=== PATIENT | female | born 1955 | race Caucasian/White ===

== ENCOUNTER 2025-07-30 11:41 | Emergency (ER) | payer MEDICARE, OTHER, SELFPAY ==
[2025-07-30] VITALS (9 sets, daily range): BP systolic 128–150; BP diastolic 73–80; PULSE 63–73; TEMP 36.7; O2SAT 93–97; BMI 36.8
--- NOTE | 2025-07-30 12:22 | CT_ITS ---
The [address] [address] Patient Name: JOIE ANGULO MRN: [id number] date: 1955 Sex: F Assigned Patient Location: ER Current Patient Location: Accession/Order Number: [id number] Exam Date: 07/30/2025 12:55 Report Date: 07/30/2025 13:27 At the request of: EVGENY OBRIEN MD Procedure: CT head/brain wo con CT head/brain wo con 07/30/2025 1:09 PM SIGNS AND SYMPTOMS: Dizziness, nausea TECHNIQUE:Multi-detector CT axial slices of the brain were obtained without IV contrast. CT was performed with one or more of the following dose reduction techniques: Automated exposure control, adjustment of the mA and/or kV according to patient size, or use of iterative reconstruction technique. COMPARISON: None. FINDINGS: There is no shift of the midline structures, acute intracranial bleeding, mass effects, or evidence of acute ischemia. The ventricular system is normal in size. The brainstem and the cerebellum are unremarkable. The visualized intraorbital contents, the visualized paranasal sinuses, and the infratemporal soft tissues show no acute abnormality. The osseous structures in the skull base and the calvarium show no abnormality. CT/CT head/brain wo con IMPRESSION: Normal noncontrasted CT brain. Impression dictated by: Lazaro Rain M.D. 07/30/2025 1:27 PM Dictation Location: [place] [address] Electronically authenticated by: [id number] Y Date: 07/30/2025 13:27
--- NOTE | 2025-07-30 12:22 | ECG_ITS ---
The [facility] Test Date: 2025-07-30 Pat Name: JOIE ANGULO Department: Room: - Gender: Female Gynecologist: : 1955 Requested By: [id number] Order Number: [id number] Reading MD: VU SHARMA M.D. Measurements Intervals Mason Rate: 60 P: 47 ME: 146 QRS: -18 QRSD: 74 T: 33 QT: 400 QTc: 402 Interpretive Statements 1100 Sinus rhythm 2420 RSR (QR) in lead V1/V2, consistent with right ventricular conduction delay 3113 Cannot rule out anterior myocardial infarction, probably old 7300 Indeterminate axis 8102 Low QRS voltage in chest leads 9150 abnormal ECG No previous ECG available for comparison Electronically Signed On 07-31-2025 10:27:40 EDT by VU SHRAMA M.D.
--- NOTE | 2025-07-30 12:23 | ED.GENADUL1 ---
HPI HPI - General Adult General Chief complaint: Dizziness Stated complaint: NAUSEA, DIZZINESS Time Seen by Provider: 07/30/25 12:18 Source: patient Mode of arrival: walk-in History of Present Illness HPI narrative: 69-year-old female presented for a spinning sensation. It started abruptly today and it is worse if she stands up and moves around. She has never had this before. No localized weakness or trauma or fever. No numbness on her body. No new medications or unusual activities. Related Data Previous Rx's ?Medication ?Instructions ?Recorded meclizine 25 mg tablet 25 mg PO TID PRN dizziness #20 tabs 07/30/25 ondansetron 4 mg disintegrating 4 mg PO Q6H PRN nausea and 07/30/25 tablet vomiting #20 tabs Allergies Allergy/AdvReac Type Severity Reaction Status Date / Time No Known Drug Allergies Allergy Verified 07/30/25 11:53 Review of Systems ROS Narrative A ten point review of systems is negative except as noted above. Exam Narrative Exam Narrative: Nurses note and vital signs reviewed and patient is not hypoxic. General:The patient appears well and in no apparent distress. Patient is resting comfortably on cart. Skin:Warm, dry, no pallor noted.There is no rash noted. Head:Normocephalic, atraumatic Eye: Normal conjunctiva, no drainage, EOMI. PERRL Ears, Nose, Mouth, and Throat: oral mucosa is moist. Nares patent. TMs are nonerythematous. Cardiovascular:Regular Rate and Rhythm Respiratory:Patient is in no distress, no accessory muscle use, lungs are clear to auscultation, no wheezing, rales or rhonchi Back:non-tender GI: Soft and nontender Musculoskeletal: The patient has no evidence of calf tenderness, no pitting edema, symmetrical pulses noted bilaterally Neurological:A&O, normal speech: Upper and lower extremity strength 5 out of 5 and symmetric. Psychiatric:Cooperative Constitutional Vital Signs, click to edit/add: Last Vital Signs Temp 98.0 F 07/30/25 11:47 Pulse 63 07/30/25 12:30 Resp 19 07/30/25 12:30 BP 128/73 07/30/25 12:00 Pulse Ox 95 07/30/25 12:30 O2 Del Method Room Air 07/30/25 12:13 Course Vital Signs Vital signs: Vital Signs Temperature 98.0 F 07/30/25 11:47 Pulse Rate 73 07/30/25 11:47 Respiratory Rate 18 07/30/25 11:47 Blood Pressure 150/76 H 07/30/25 11:47 Pulse Oximetry 95 07/30/25 11:47 Oxygen Delivery Method Room Air 07/30/25 11:47 Temperature 98.0 F 07/30/25 11:47 Pulse Rate 63 07/30/25 12:30 Respiratory Rate 19 07/30/25 12:30 Blood Pressure 128/73 07/30/25 12:00 Pulse Oximetry 95 07/30/25 12:30 Oxygen Delivery Method Room Air 07/30/25 12:13 Medical Decision Making MDM Narrative Medical decision making narrative: Her workup including CT brain is negative. She is ambulatory and is able to be discharged home with a prescription for Antivert and Zofran. Follow-up with PCP and return to emergency department if symptoms worsen. Treatment diagnosis and follow-up were discussed with the patient and her . Differential Diagnosis Differential Diagnosis: Vertigo, labyrinthitis, dehydration, acute kidney injury Lab Data Lab results reviewed: Yes I reviewed the patient's lab results Labs: Lab Results 07/30/25 Range/Units 12:07 WBC 7.4 (4.0-11.0) 10^3/uL RBC 3.94 L (4.20-5.40) 10^6/uL Hgb 12.7 (12.0-16.0) g/dL Hct 37.0 (36.0-48.0) % MCV 93.9 (81.0-99.0) fL MCH 32.2 (26.7-34.0) pg MCHC 34.3 (29.9-35.2) g/dL RDW 12.4 (11.0-15.0) % Plt Count 230 (150-450) 10^3/uL MPV 10.7 (9.5-13.5) fL Neut % (Auto) 69.8 (43.0-75.0) % Lymph % (Auto) 21.2 (20.5-60.0) % [place] % (Auto) 6.6 (1.7-12.0) % Eos % (Auto) 1.6 (0.9-7.0) % Baso % (Auto) 0.4 (0.2-2.0) % Neut # (Auto) 5.2 (1.4-6.5) 10^3/uL Lymph # (Auto) 1.6 (1.2-3.8) 10^3/uL [place] # (Auto) 0.5 (0.3-0.8) 10^3/uL Eos # (Auto) 0.1 (0.0-0.7) 10^3/uL Baso # (Auto) 0.0 (0.0-0.1) 10^3/uL Abs Immat Gran (auto) 0.03 (0.00-0.03) 10^3/uL Imm/Tot Granulo (auto) 0.4 (0.0-0.5) % Sodium 138 (136-145) mmol/L Potassium 3.9 (3.5-5.1) mmol/L Chloride 105 (98-107) mmol/L Carbon Dioxide 25.5 (21.0-32.0) mmol/L Anion Gap 11.4 BUN 25.0 H (7.0-18.0) mg/dL Creatinine 1.15 H (0.55-1.02) mg/dL Est GFR ( Amer) 56 L (>=60 mL/min/1.73m^2) Est GFR (Non-Af Amer) 47 L (>=60 mL/min/1.73m^2) BUN/Creatinine Ratio 21.7 Glucose 104 (74-106) mg/dL Calcium 8.7 (8.5-10.1) mg/dL Imaging Data CT scan - head: Radiologist's impression: ITS Impressions Head CT 07/30/25 12:22 IMPRESSION: Normal noncontrasted CT brain. Impression dictated by: Lazaro Rain M.D. 07/30/2025 1:27 PM Dictation Location: [place] [address] Electronically authenticated by: [id number] Y Date: 07/30/2025 13:27 ECG Data Attestation: I personally reviewed and interpreted this ECG as follows: (EKG on my interpretation shows sinus rhythm with rate of 60 and no acute change) Discharge Plan Discharge Chief Complaint: Dizziness Clinical Impression: Vertigo Patient Disposition: Home, Self-Care Time of Disposition Decision: 14:14 Condition: Good Mode of Transportation: Private Vehicle Prescriptions / Home Meds: New meclizine 25 mg tablet 25 mg PO TID PRN (Reason: dizziness) Qty: 20 0RF ondansetron 4 mg tablet,disintegrating 4 mg PO Q6H PRN (Reason: nausea and vomiting) Qty: 20 0RF Print Language: Syriac Instructions: Vertigo (ED) Referrals: Jodie Garcia DO [Primary Care Provider] - 1 week
[2025-07-30 12:26] LABS: Hematocrit 37.0 % (36.0-48.0); Hemoglobin 12.7 g/dL (12.0-16.0); Immature Granulocytes Abs Auto 0.03 10^3/uL (0.00-0.03); Immature Granulocytes Pct Auto 0.4 % (0.0-0.5); Lymphocytes Absolute Auto 1.6 10^3/uL (1.2-3.8); Mean Corpuscular HGB Conc 34.3 g/dL (29.9-35.2); Mean Corpuscular Hemoglobin 32.2 pg (26.7-34.0); Mean Corpuscular Volume 93.9 fL (81.0-99.0); Platelet Count 230 10^3/uL (150-450); Red Blood Count 3.94 10^6/uL (4.20-5.40); White Blood Count 7.4 10^3/uL (4.0-11.0)
[2025-07-30] MEDS: MECLIZINE HCL 12.5 MG TABLET 25 MG PO (12:37)
[2025-07-30 12:43] LABS: Anion Gap 11.4; Blood Urea Nitrogen 25.0 mg/dL (7.0-18.0); Calcium 8.7 mg/dL (8.5-10.1); Carbon Dioxide 25.5 mmol/L (21.0-32.0); Chloride 105 mmol/L (98-107); Estimated GFR (African America 56 (>=60 mL/min/1.73m^2); Estimated GFR (Non-African Ame 47 (>=60 mL/min/1.73m^2); Glucose 104 mg/dL (74-106); Potassium 3.9 mmol/L (3.5-5.1); Sodium 138 mmol/L (136-145)
== END 2025-07-30 14:25 | disposition home or self-care (01) ==
PROVIDERS: Emergency Provider Emergency Medicine; PCP Family Medicine
DX: R42 Dizziness and giddiness (principal)
CPT/HCPCS: 36415; 70450; 80048; 85025; 93005; 99285